=== PATIENT | male | born 1985 | race Caucasian/White ===

== ENCOUNTER 2022-03-08 11:13 | Emergency (ER) | payer BC ==
[~2022-03-08] VITALS: Ht 180.3 cm; Wt 77.1 kg
[2022-03-08] MEDS ORDERED: MOTION SICKNESS25 M1 PO (15:43)
[2022-03-08] MEDS ORDERED: METOCLOPRAMIDE10 MG PO (15:43)
== END 2022-03-08 16:03 ==
LOC: ER 11:13
DX: R42 Dizziness and giddiness (principal); I10 Essential (primary) hypertension